=== PATIENT | male | born 1945 | race Caucasian/White ===

== ENCOUNTER 2016-10-22 16:09 | Inpatient (IN) | payer OTHER ==
[~2016-10-22] VITALS: Ht 188 cm; Wt 73.2 kg
[2016-10-22] MEDS ORDERED: FUROSEMIDE20 MG PO (16:40)
[2016-10-22] MEDS ORDERED: CARVEDILOL3.125 M1 PO (16:41)
[2016-10-22] MEDS ORDERED: GOOD SENSE OMEP20 MG PO (16:41)
[2016-10-22] MEDS ORDERED: LISINOPRIL10 MG PO (16:41)
[2016-10-22 17:20] LABS: BASOPHIL % 1.4 % (0-2); PLATELET COUNT 172 x10^3mcL (130-400)
[2016-10-22 17:29] LABS: RED CELL DISTRIBUTION WIDTH 15.4 % (11.5-14.5)
[2016-10-22 17:35] LABS: CALCIUM 9.4 mg/dL (8.5-10.1); CARBON DIOXIDE 26.6 mmol/L (21-32); CHLORIDE SERUM 102 mmol/L (98-107); CREATININE SERUM 1.6 mg/dL (0.7-1.3); GLUCOSE SERUM 101 mg/dL (74-106); POTASSIUM SERUM 4.8 mmol/L (3.5-5.1); SODIUM SERUM 138 mmol/L (136-145)
[2016-10-22 17:39] LABS: AMPHETAMINE QUAL UR NONE DETECTED (NEG <=1000)
[2016-10-22 17:43] LABS: ALBUMIN 3.8 g/dL (3.4-5.0); ALKALINE PHOSPHATASE 102 U/L (46-116); ALT/SGPT 22 U/L (16-63); AST/SGOT 21 U/L (15-37); BILIRUBIN TOTAL 1.3 mg/dL (0.20-1.00); FREE T4 1.39 ng/dL (0.76-1.46); LIPASE 128 IU/L (73-393); MAGNESIUM 1.9 mg/dL (1.8-2.4); TOTAL PROTEIN, SERUM 6.8 g/dL (6.4-8.2)
[2016-10-22 19:33] VITALS: BP 118/92
[2016-10-22 19:47] LABS: CHOLESTEROL/HDL RATIO 2.7; PHOSPHOROUS 4.3 mg/dL (2.5-4.9)
[2016-10-22 19:53] LABS: T3 TOTAL 0.79 ng/mL
[2016-10-22 19:58] LABS: FREE T4 1.46 ng/dL (0.76-1.46); FREE THYROXINE INDEX 2.4 ug/dL (1.4-4.5); T4(THYROXINE) 6.6 ug/dL (4.7-13.3)
[2016-10-22 20:04] VITALS: BP 117/91
[2016-10-23 05:55] VITALS: BP 99/74
[2016-10-23 06:52] LABS: BASOPHIL % 0.3 % (0-2); PLATELET COUNT 143 x10^3mcL (130-400)
[2016-10-23 06:55] LABS: RED CELL DISTRIBUTION WIDTH 15.4 % (11.5-14.5)
[2016-10-23 06:58] LABS: CALCIUM 9.2 mg/dL (8.5-10.1); CARBON DIOXIDE 21.9 mmol/L (21-32); CHLORIDE SERUM 106 mmol/L (98-107); CREATININE SERUM 1.8 mg/dL (0.7-1.3); GLUCOSE SERUM 98 mg/dL (74-106); MAGNESIUM 2.1 mg/dL (1.8-2.4); PHOSPHOROUS 4.3 mg/dL (2.5-4.9); POTASSIUM SERUM 5.1 mmol/L (3.5-5.1); SODIUM SERUM 137 mmol/L (136-145)
[2016-10-23 10:10] VITALS: BP 137/102
== END 2016-10-23 12:11 | disposition left against medical advice (07) | DRG 189 ==
LOC: ED 16:09 → DU 18:57
PROVIDERS: Emergency Medicine; ADMIT Family Medicine
DX: J96.00 Acute respiratory failure, unspecified whether with hypoxia or hypercapnia (principal); I50.43 Acute on chronic combined systolic (congestive) and diastolic (congestive) heart failure; J44.1 Chronic obstructive pulmonary disease with (acute) exacerbation; I47.1 Supraventricular tachycardia; R18.8 Other ascites; J90 Pleural effusion, not elsewhere classified; Z72.0 Tobacco use; F10.10 Alcohol abuse, uncomplicated; Z68.20 Body mass index [BMI] 20.0-20.9, adult
CPT/HCPCS: 36600; 83880; 84439; 94150; G0480; J2060; J2920; J3490; J7030; J7620; J7626; Q0092

== ENCOUNTER 2016-10-24 09:11 | Emergency (ER) | payer OTHER ==
[~2016-10-24 09:11] MED LIST: CARVEDILOL3.125 M1 PO; FUROSEMIDE20 MG PO; GOOD SENSE OMEP20 MG PO; LISINOPRIL10 MG PO
[2016-10-24 10:24] LABS: BASOPHIL % 0.5 % (0-2); PLATELET COUNT 156 x10^3mcL (130-400)
[2016-10-24 10:28] LABS: CALCIUM 9.4 mg/dL (8.5-10.1); CHLORIDE SERUM 103 mmol/L (98-107); CREATININE SERUM 1.8 mg/dL (0.7-1.3); GLUCOSE SERUM 112 mg/dL (74-106); POTASSIUM SERUM 4.9 mmol/L (3.5-5.1); SODIUM SERUM 140 mmol/L (136-145)
[2016-10-24 10:33] LABS: ALBUMIN 3.8 g/dL (3.4-5.0); ALKALINE PHOSPHATASE 90 U/L (46-116); ALT/SGPT 21 U/L (16-63); AST/SGOT 19 U/L (15-37); TOTAL PROTEIN, SERUM 6.7 g/dL (6.4-8.2)
[2016-10-24 10:42] LABS: RED CELL DISTRIBUTION WIDTH 15.5 % (11.5-14.5)
[2016-10-24 12:42] VITALS: BP 131/70
== END 2016-10-24 12:42 | disposition home or self-care (01) ==
LOC: ED 09:11
PROVIDERS: Emergency Medicine
DX: J44.1 Chronic obstructive pulmonary disease with (acute) exacerbation (principal); I10 Essential (primary) hypertension; Z79.899 Other long term (current) drug therapy
CPT/HCPCS: 83880; J2930; J7613; J7644

== ENCOUNTER 2017-02-02 10:18 | Inpatient (IN) | payer OTHER ==
[~2017-02-02] VITALS: Ht 182.9 cm; Wt 70.0 kg
[2017-02-02] MEDS ORDERED: PROTONIX20 MG PO (10:37)
[2017-02-02] MEDS ORDERED: ENTRESTO1 TAB PO (10:37)
[2017-02-02] MEDS ORDERED: ALDACTONE25 MG PO (10:38)
[2017-02-02 11:22] LABS: BASOPHIL % 0.8 % (0-2)
[2017-02-02 11:23] LABS: PLATELET COUNT 128 x10^3mcL (130-400); RED CELL DISTRIBUTION WIDTH 14.7 % (11.5-14.5)
[2017-02-02 11:45] LABS: CARBON DIOXIDE 31.1 mmol/L (21-32); CHLORIDE SERUM 107 mmol/L (98-107); CREATININE SERUM 1.2 mg/dL (0.7-1.3); GLUCOSE SERUM 121 mg/dL (74-106); POTASSIUM SERUM 5.2 mmol/L (3.5-5.1); SODIUM SERUM 142 mmol/L (136-145)
[2017-02-02 11:49] LABS: ALBUMIN 3.5 g/dL (3.4-5.0); ALKALINE PHOSPHATASE 78 U/L (46-116); ALT/SGPT 15 U/L (16-63); AST/SGOT 17 U/L (15-37); BILIRUBIN TOTAL 1.7 mg/dL (0.20-1.00); TOTAL PROTEIN, SERUM 6.7 g/dL (6.4-8.2)
[2017-02-02 12:19] LABS: UA SPECIFIC GRAVITY 1.025 (1.005-1.035); microscopic required? YES; urine erythrocyte NEGATIVE (NEGATIVE)
[2017-02-02 13:24] LABS: T3 TOTAL 0.81 ng/mL
[2017-02-02 13:27] LABS: CHOLESTEROL/HDL RATIO 2.5; MAGNESIUM 1.8 mg/dL (1.8-2.4)
[2017-02-02 13:37] LABS: FREE T4 1.25 ng/dL (0.76-1.46); FREE THYROXINE INDEX 3.1 ug/dL (1.4-4.5); T4(THYROXINE) 7.9 ug/dL (4.7-13.3)
[2017-02-02 14:08] VITALS: BP 136/92
[2017-02-02 17:21] LABS: CARBON DIOXIDE 30.3 mmol/L (21-32); CHLORIDE SERUM 105 mmol/L (98-107); CREATININE SERUM 1.2 mg/dL (0.7-1.3); GLUCOSE SERUM 120 mg/dL (74-106); POTASSIUM SERUM 4.5 mmol/L (3.5-5.1); SODIUM SERUM 140 mmol/L (136-145)
[2017-02-02 18:40] VITALS: BP 106/76
[2017-02-02 22:13] VITALS: BP 111/73
[2017-02-03] VITALS (8 sets, daily range): BP systolic 95–148; BP diastolic 64–88
[2017-02-03 06:56] LABS: CALCIUM 8.9 mg/dL (8.5-10.1); CHLORIDE SERUM 106 mmol/L (98-107); CREATININE SERUM 1.2 mg/dL (0.7-1.3); GLUCOSE SERUM 84 mg/dL (74-106); MAGNESIUM 1.8 mg/dL (1.8-2.4); PHOSPHOROUS 3.7 mg/dL (2.5-4.9); SODIUM SERUM 141 mmol/L (136-145)
[2017-02-03 07:26] LABS: BASOPHIL % 0.6 % (0-2); RED CELL DISTRIBUTION WIDTH 14.3 % (11.5-14.5)
[2017-02-03 07:28] LABS: PLATELET COUNT 123 x10^3mcL (130-400)
[2017-02-04 05:30] VITALS: BP 121/78
[2017-02-04 06:13] LABS: CALCIUM 9.2 mg/dL (8.5-10.1); CARBON DIOXIDE 29.7 mmol/L (21-32); CHLORIDE SERUM 104 mmol/L (98-107); CREATININE SERUM 1.3 mg/dL (0.7-1.3); GLUCOSE SERUM 82 mg/dL (74-106); POTASSIUM SERUM 4.2 mmol/L (3.5-5.1); SODIUM SERUM 141 mmol/L (136-145)
[2017-02-04 09:27] VITALS: BP 92/71
[2017-02-04 11:10] VITALS: BP 108/70
[2017-02-04 13:53] VITALS: BP 106/84
[2017-02-04 16:44] VITALS: BP 118/82
[2017-02-04 22:19] VITALS: BP 112/74
[2017-02-05 05:53] VITALS: BP 94/71
[2017-02-05 06:34] LABS: BASOPHIL % 0.5 % (0-2); PLATELET COUNT 143 x10^3mcL (130-400); RED CELL DISTRIBUTION WIDTH 14.2 % (11.5-14.5)
[2017-02-05 06:36] LABS: CALCIUM 9.3 mg/dL (8.5-10.1); CARBON DIOXIDE 33.8 mmol/L (21-32); CHLORIDE SERUM 105 mmol/L (98-107); CREATININE SERUM 1.4 mg/dL (0.7-1.3); GLUCOSE SERUM 82 mg/dL (74-106); MAGNESIUM 1.9 mg/dL (1.8-2.4); PHOSPHOROUS 3.9 mg/dL (2.5-4.9); POTASSIUM SERUM 5.2 mmol/L (3.5-5.1); SODIUM SERUM 140 mmol/L (136-145)
[2017-02-05 13:57] VITALS: BP 113/69
[2017-02-05 17:40] VITALS: BP 100/70
[2017-02-05 19:20] VITALS: BP 93/66
[2017-02-05 21:37] VITALS: BP 105/66; BP 139/66
[2017-02-06] VITALS (9 sets, daily range): BP systolic 91–158; BP diastolic 55–109; Ht 182.9 cm; Wt 70.0 kg
[2017-02-06 06:58] LABS: BASOPHIL % 0.7 % (0-2); PLATELET COUNT 141 x10^3mcL (130-400); RED CELL DISTRIBUTION WIDTH 14.4 % (11.5-14.5)
[2017-02-06 07:50] LABS: CALCIUM 9.3 mg/dL (8.5-10.1); CARBON DIOXIDE 31.8 mmol/L (21-32); CHLORIDE SERUM 103 mmol/L (98-107); CREATININE SERUM 1.4 mg/dL (0.7-1.3); GLUCOSE SERUM 78 mg/dL (74-106); PHOSPHOROUS 4.3 mg/dL (2.5-4.9); POTASSIUM SERUM 4.3 mmol/L (3.5-5.1); SODIUM SERUM 142 mmol/L (136-145)
[2017-02-07] VITALS (8 sets, daily range): BP systolic 82–130; BP diastolic 54–85
[2017-02-07 07:04] LABS: BASOPHIL % 0.4 % (0-2); PLATELET COUNT 162 x10^3mcL (130-400)
[2017-02-07 07:31] LABS: CALCIUM 9.2 mg/dL (8.5-10.1); CARBON DIOXIDE 32.2 mmol/L (21-32); CHLORIDE SERUM 101 mmol/L (98-107); CREATININE SERUM 1.4 mg/dL (0.7-1.3); GLUCOSE SERUM 85 mg/dL (74-106); POTASSIUM SERUM 4.2 mmol/L (3.5-5.1); SODIUM SERUM 139 mmol/L (136-145)
[2017-02-08 06:01] VITALS: BP 153/88
[2017-02-08 06:46] LABS: CALCIUM 9.3 mg/dL (8.5-10.1); CARBON DIOXIDE 32.2 mmol/L (21-32); CHLORIDE SERUM 101 mmol/L (98-107); CREATININE SERUM 1.4 mg/dL (0.7-1.3); GLUCOSE SERUM 81 mg/dL (74-106); POTASSIUM SERUM 4.9 mmol/L (3.5-5.1); SODIUM SERUM 138 mmol/L (136-145)
[2017-02-08 09:18] VITALS: BP 145/71
[2017-02-08] MEDS ORDERED: COR200 PO (13:00)
[2017-02-08] MEDS ORDERED: DIG125 PO (13:03)
[2017-02-08] MEDS ORDERED: COR3 PO (13:06)
[2017-02-08] MEDS ORDERED: CAL40 PO (13:07)
[2017-02-08] MEDS ORDERED: L40 PO (13:09)
[2017-02-08 13:33] VITALS: BP 150/93
[2017-02-08 14:58] VITALS: BP 129/76
[2017-02-08 16:19] VITALS: BP 129/76
[2017-02-08 17:06] VITALS: BP 102/66
== END 2017-02-08 17:23 | disposition home or self-care (01) | DRG 242 ==
LOC: ED 10:18 → DU 12:20
PROVIDERS: Emergency Medicine; Family Medicine; Internal Medicine Cardiovascular Disease; Student in an Organized Health Care Education/Training Program; ADMIT Family Medicine Sports Medicine
PROC: 0JH606Z Insertion of Pacemaker, Dual Chamber into Chest Subcutaneous Tissue and Fascia, Open Approach (ICD-10-PCS; principal; 2017-02-07)
PROC: 02H63JZ Insertion of Pacemaker Lead into Right Atrium, Percutaneous Approach (ICD-10-PCS; 2017-02-07)
PROC: 02HK3JZ Insertion of Pacemaker Lead into Right Ventricle, Percutaneous Approach (ICD-10-PCS; 2017-02-07)
DX: I49.5 Sick sinus syndrome (principal); I50.43 Acute on chronic combined systolic (congestive) and diastolic (congestive) heart failure; N17.0 Acute kidney failure with tubular necrosis; J96.01 Acute respiratory failure with hypoxia; J69.0 Pneumonitis due to inhalation of food and vomit; I13.0 Hypertensive heart and chronic kidney disease with heart failure and stage 1 through stage 4 chronic kidney disease, or unspecified chronic kidney disease; I47.1 Supraventricular tachycardia; J44.1 Chronic obstructive pulmonary disease with (acute) exacerbation; I42.9 Cardiomyopathy, unspecified; I48.91 Unspecified atrial fibrillation; E87.5 Hyperkalemia; F10.20 Alcohol dependence, uncomplicated; D69.59 Other secondary thrombocytopenia; F17.210 Nicotine dependence, cigarettes, uncomplicated; Z68.20 Body mass index [BMI] 20.0-20.9, adult; E80.6 Other disorders of bilirubin metabolism; N18.9 Chronic kidney disease, unspecified
CPT/HCPCS: 33208; 36600; 83880; 84439; 94150; 99406; C1785; J0690; J1160; J1940; J2001; J2250; J2270; J2543; J3010; J3370; J3490; J7040; J7050; Q0092; Q0163; Q9967

== ENCOUNTER 2017-03-12 19:27 | Emergency (ER) | payer OTHER ==
[~2017-03-12 19:27] MED LIST changes: +ALDACTONE25 MG PO; +CAL40 PO; +COR200 PO; +COR3 PO; +DIG125 PO; +ENTRESTO1 TAB PO; +L40 PO; +PROTONIX20 MG PO
[2017-03-12 23:11] VITALS: BP 158/93
== END 2017-03-12 23:11 | disposition home or self-care (01) ==
LOC: ED 19:27
DX: S32.302A Unspecified fracture of left ilium, initial encounter for closed fracture (principal); I49.9 Cardiac arrhythmia, unspecified; I10 Essential (primary) hypertension; W17.89XA Other fall from one level to another, initial encounter; Y93.89 Activity, other specified; Y92.89 Other specified places as the place of occurrence of the external cause; Y99.8 Other external cause status